=== PATIENT | female | born 1950 | race Caucasian/White ===

== ENCOUNTER 2024-02-05 19:24 | Emergency (ER) | payer MEDICARE, BC ==
[~2024-02-05] VITALS: Ht 157.5 cm; Wt 54.4 kg
[2024-02-05 20:13] VITALS: O2SAT 99
[2024-02-05] MEDS ORDERED: HYDROCODONE/APAP 5-325MG TABLET ONE (20:36)
[2024-02-05] MEDS: HYDROCODONE/APAP 5-325MG TABLET PO ONE (20:40)
[2024-02-05] MEDS ORDERED: DICL100G26 TP (21:41)
== END 2024-02-05 21:50 | disposition home or self-care (01) ==
LOC: ER 19:25
DX: S20.212A Contusion of left front wall of thorax, initial encounter (principal); S30.0XXA Contusion of lower back and pelvis, initial encounter; M53.3 Sacrococcygeal disorders, not elsewhere classified; Z79.899 Other long term (current) drug therapy; W18.39XA Other fall on same level, initial encounter; Y93.89 Activity, other specified; Y92.89 Other specified places as the place of occurrence of the external cause; Y99.8 Other external cause status
CPT/HCPCS: 71101; 72220; A4606; A4663